=== PATIENT | female | born 1995 | race Caucasian/White ===

== ENCOUNTER 2016-08-20 17:56 | Emergency (ER) | payer MEDICAID ==
[~2016-08-20] VITALS: Ht 165.1 cm; Wt 85.3 kg
[2016-08-20 18:21] VITALS: BP 123/85
--- NOTE | 2016-08-20 19:23 | NUR ---
PT TAKEN TO OF
--- NOTE | 2016-08-20 19:26 | NUR ---
Dr. Garcia evaluating patient
--- NOTE | 2016-08-20 19:31 | NUR ---
21Y/F PATIENT BIB TO ED WITH C/O RASH TO FACE X 5DAYS. PT. STATES HAVING RASH WITH EAST, PRURITUS, BURNING X 25 DAYS, NO FEVER. NO MEDICAL HX.; SKIN IS PINK/WARM/DRY, RASH TO FACE NOTED; AAOX4 WITH EVEN AND STEADY GAIT; LUNGS CLEAR BL; HR EVEN AND REGULAR; PT DENIES ANY FEVER, CP, SOB, OR COUGH AT THIS TIME; PATIENT STATES PAIN OF 0/10 AT THIS TIME; VSS; PATIENT POSITIONED FOR COMFORT; HOB ELEVATED; BEDRAILS UP X2; BED DOWN. ER MD MADE AWARE OF PT STATUS.
--- NOTE | 2016-08-20 19:38 | NUR ---
Patient discharged with v/s stable. Written and verbal after care instructions given and explained. Patient alert, oriented and verbalized understanding of instructions. Ambulatory with steady gait. All questions addressed prior to discharge. ID band removed. Patient advised to follow up with PMD. Rx of MUPICORIN 2% TOPICAL OINTMENT given. Patient educated on indication of medication including possible reaction and side effects. Opportunity to ask questions provided and answered.
[2016-08-20 19:39] VITALS: BP 123/85
== END 2016-08-20 19:38 | disposition home or self-care (01) ==
LOC: MED 17:56
DX: L01.00 Impetigo, unspecified (principal)

== ENCOUNTER 2018-09-28 19:01 | Emergency (ER) | payer SELFPAY ==
[~2018-09-28] VITALS: Ht 165.1 cm; Wt 84.8 kg
--- NOTE | 2018-09-28 19:15 | NUR ---
AMBULATED TO BED #3, AMBULATED TO THE RESTROOM. GAVE U/A SPECIMEN
[2018-09-28 19:18] VITALS: BP 133/90
--- NOTE | 2018-09-28 19:27 | NUR ---
23 YO F BIB SELF AND SISTER PRESENTS TO ED C/O ANXIETY S/SX X 5-6 WEEKS. PT STATES HER "HEAD FEELS FOGGY" AND STATES "I DON'T FEEL LIKE MYSELF". SHE ALSO C/O 5/10 SORENESS TO HER ARMS AND LEGS THAT SHE STATES ALSO STARTED 5-6 WEEKS AGO. PT DENIES ANY SOB, CP, OR FEELINGS OF PANIC. PT STATES SHE HAD A BABY 3 MONTHS AGO. ADMITS TO HAVING FEELINGS OF SUICIDE RIGHT AFTER HAVING THE BABY BUT DENIES SI/HI AT THIS TIME. PT ALSO ADMITS TO FEELING DEPRESSED AT THIS TIME BECAUSE SHE "CAN'T FIGURE OUT WHAT IS WRONG." -- PT IS CALM, COOPERATIVE, ANSWERS QUESTIONS APPROPRIATELY. -- SKIN PINK, WARM, DRY. BREATHING EVEN, UNLABORED. PMH-- DENIES RX-- DENIES
--- NOTE | 2018-09-28 19:38 | NUR ---
Dr. Garcia evaluating patient at bedside.
[2018-09-28] MEDS ORDERED: LORazepam 1 MG TAB PO ONE (19:50)
[2018-09-28 20:14] LABS: BASOPHILS % (AUTO) 0.4 % (0.0-2.0); EOSINOPHILS # (AUTO) 0.2 K/uL (0-0.4); EOSINOPHILS % (AUTO) 2.4 % (0.0-4.0); HEMATOCRIT 40.6 % (36-48); HEMOGLOBIN 13.6 g/dL (12.0-16.0); LYMPHOCYTES # (AUTO) 1.7 K/uL (2.5-16.5); LYMPHOCYTES % (AUTO) 23.4 % (20.5-51.1); MEAN CORPUSCULAR HEMOGLOBIN 29 pg (27-31); MEAN CORPUSCULAR HGB CONC 33 g/dL (33-37); MONOCYTES # (AUTO) 0.4 K/uL (0.8-1.0); MONOCYTES % (AUTO) 5.6 % (1.7-9.3); NEUTROPHILS % (AUTO) 68.2 % (42.2-75.2); PLATELET COUNT (AUTO) 331 K/uL (140-450); RED BLOOD CELL COUNT(AUTO) 4.72 MIL/uL (4.20-5.40); RED CELL DISTRIBUTION WIDTH 12.7 % (11.6-13.7); WHITE BLOOD COUNT (AUTO) 7.4 K/uL (4.8-10.8)
[2018-09-28 20:27] LABS: ANION GAP 12.8 (8-16); CHLORIDE 104 mmol/L (98-107); CREATININE 0.7 mg/dL (0.6-1.3); GFR ARICAN-AMERICAN 131 mL/min (>90); GLUCOSE 97 mg/dL (74-106); POTASSIUM 3.8 mmol/L (3.5-5.1); SODIUM SERUM 139 mmol/L (136-145); UREA NITROGEN, BLOOD 15 mg/dL (7-18)
[2018-09-28 20:31] LABS: BARBITURATE, URINE NEG. ng/ml (NEG <=200); BENZODIAZEPINE, URINE NEG. ng/mL (NEG <=200); CANNABINOID, URINE NEG. ng/mL (NEG <=50); COCAINE, URINE NEG. ng/mL (NEG <=300); OPIATE, URINE NEG. ng/mL (NEG <=2000); PHENCYCLIDINE SCREEN,URINE NEG. ng/mL (NEG <=25)
[2018-09-28 20:34] LABS: ALBUMIN 3.5 g/dL (3.4-5.0); ASPARTATE AMINOTRANSFERASE 21 U/L (15-37); TOTAL BILIRUBIN 0.3 mg/dL (0.0-1.0)
[2018-09-28 20:39] LABS: ACETAMINOPHEN < 0.5 ug/ml (10-30); SALICYLATE < 2.8 mg/dL (2.8-20.0)
[2018-09-28 21:30] VITALS: BP 133/90
== END 2018-09-28 21:30 | disposition home or self-care (01) ==
LOC: MED 19:01
DX: F41.9 Anxiety disorder, unspecified (principal); M79.10 Myalgia, unspecified site; F12.10 Cannabis abuse, uncomplicated
CPT/HCPCS: 36415; 80053; 80305; 81002; 81025; 85025; 99284; G0480; G0482